=== PATIENT | male | born 1980 | race Caucasian/White ===

== ENCOUNTER 2018-03-06 13:10 | Emergency (ER) | payer BC ==
[2018-03-06] MEDS ORDERED: Diltiazem 25 MG/5 ML SDV IVPUSH ONE (13:48)
--- NOTE | 2018-03-06 13:54 | EDM.PDOC ---
ED HPI GENERAL MEDICAL PROBLEM - General Chief Complaint: Cardiovascular Problem Stated Complaint: DIZZINESS, RACING HEART Time Seen by Provider: 03/06/18 13:40 Source of Information: Reports: Patient, Family History Limitations: Reports: No Limitations - History of Present Illness INITIAL COMMENTS - FREE TEXT/NARRATIVE: 37-year-old female, usually healthy with only complaint of some slight joint stiffness over the past several weeks was on the boat today and developed an irregular heartbeat. He has no shortness of breath or chest pain. He had 6 beers last night but it wasn't a lot more than his usual. No fevers or chills. He felt lightheaded when he stood up so he thought he should have it checked. He has not had this in the past. Onset: Sudden Duration: Hour(s): (1 hour ago) Severity: Moderate Associated Symptoms: Reports: Other (Slight joint stiffness over the past several weeks, no redness or swelling) - Related Data Allergies Allergy/AdvReac Type Severity Reaction Status Date / Time bee venom protein (honey bee) Allergy Anaphylactic Verified 03/06/18 13:30 Shock Home Meds: Home Meds NK [No Known Home Meds] 03/06/18 [History] Past Medical History Musculoskeletal History: Reports: Fracture - Past Surgical History HEENT Surgical History: Reports: Tonsillectomy GI Surgical History: Reports: Appendectomy Social & Family History - Tobacco Use Smoking Status *Q: Never Smoker - Caffeine Use Caffeine Use: Reports: Coffee - Recreational Drug Use Recreational Drug Use: No ED ROS GENERAL - Review of Systems Review Of Systems: See Below Constitutional: Denies: Fever, Chills Respiratory: Reports: Shortness of Breath. Denies: Pleuritic Chest Pain Cardiovascular: Reports: Palpitations. Denies: Chest Pain GI/Abdominal: Reports: No Symptoms. Denies: Nausea, Vomiting Skin: Reports: No Symptoms Neurological: Denies: Headache, Numbness, Difficulty Walking Psychiatric: Reports: No Symptoms ED EXAM, GENERAL - Physical Exam Exam: See Below Exam Limited By: No Limitations General Appearance: Alert, No Apparent Distress Head: Atraumatic Respiratory/Chest: No Respiratory Distress, Lungs Clear Cardiovascular: Tachycardia, Irregularly Irregular GI/Abdominal: Soft, Non-Tender Extremities: Normal Inspection. No: Pedal Edema Neurological: Alert, Oriented Psychiatric: Normal Affect, Normal Mood Skin Exam: Warm, Dry EKG INTERPRETATION Rhythm: A-Fib Rate (Beats/Min): 126 QRS: Normal Course - Vital Signs Last Recorded V/S: Last Vital Signs Temp 96.7 F 03/06/18 13:30 Pulse 103 H 03/06/18 14:44 Resp 16 03/06/18 14:44 BP 134/89 03/06/18 14:44 Pulse Ox 98 03/06/18 14:44 - Orders/Labs/Meds Labs: Laboratory Tests 03/06/18 03/06/18 03/06/18 Range/Units 13:48 13:48 15:01 WBC 7.6 (4.5-11.0) K/uL RBC 5.39 (4.30-5.90) M/uL Hgb 16.4 H (12.0-15.0) g/dL Hct 46.1 (40.0-54.0) % MCV 86 (80-98) fL MCH 30 (27-31) pg MCHC 36 (32-36) % Plt Count 224 (150-400) K/uL Neut % (Auto) 61 (36-66) % Lymph % (Auto) 26 (24-44) % [place] % (Auto) 12 H (2-6) % Eos % (Auto) 1 L (2-4) % Baso % (Auto) 0 (0-1) % Sodium 142 (140-148) mmol/L Potassium 3.8 (3.6-5.2) mmol/L Chloride 106 (100-108) mmol/L Carbon Dioxide 26 (21-32) mmol/L Anion Gap 10.5 (5.0-14.0) mmol/L BUN 12 (7-18) mg/dL Creatinine 1.1 (0.8-1.3) mg/dL Est Cr Clr Drug Dosing 103.91 mL/min Estimated GFR (MDRD) > 60 (>60) Glucose 101 (74-106) mg/dL Calcium 8.4 L (8.5-10.1) mg/dL Troponin I < 0.017 (0.000-0.056) ng/mL Lyme Disease IgG/IgM <0.91 (0.00-0.90) ISR Meds: Medications Discontinued Medications Generic Name Dose Route Start Last Admin Trade Name Freq PRN Reason Stop Dose Admin Diltiazem HCl 20 mg 03/06/18 13:48 03/06/18 13:55 Diltiazem IVPUSH 03/06/18 13:49 20 mg ONETIME ONE Administration Sodium Chloride 1,000 mls @ 1,000 mls/hr 03/06/18 14:00 03/06/18 13:56 Normal Saline IV 1,000 mls/hr ASDIRECTED ASHWINI Administration Propofol 100 mg 03/06/18 14:28 03/06/18 15:05 Diprivan 20 Ml IVPUSH 03/06/18 14:29 100 mg ONETIME ONE Administration - Re-Assessments/Exams Free Text/Narrative Re-Assessment/Exam: 03/06/18 13:55 EKG showed atrial fibrillation with rapid ventricular response. An IV was started, patient was given 20 mg of IV Cardizem along with one bolus of normal saline. CBC, CMP, troponin were ordered. 03/06/18 15:13 Labs were reassuring, troponin 0. A half hour after 20 mg Cardizem bolus the patient had excellent rate control but still did not spontaneously convert. After consent was signed, the patient was given 160 mg of propofol and converted electively with synchronized cardioversion at 200 J. A postconversion EKG was done which confirmed normal sinus rhythm. Patient recovered nicely and had no post procedure symptoms or complaints. Lyme's and ehrlichiosis titers were drawn, and all records and both EKGs were sent with the patient for follow- up. Departure - Departure Time of Disposition: 15:32 Disposition: Home, Self-Care 01 Condition: Good Clinical Impression: Atrial fibrillation with rapid ventricular response Instructions: Atrial Fibrillation, [id number] Referrals: PCP,None [Primary Care Provider] - Forms: ED Department Discharge Care Plan Goals: Resume regular diet and activity, that may include [place]. Consider rechecking with cardiology or your primary care provider when home. Return if symptoms recur, stay hydrated and consider decreasing alcohol intake for the next several days.
[2018-03-06] MEDS ORDERED: Sodium Chloride 0.9% 1,000 ML IV SCH (14:00)
[2018-03-06] MEDS ORDERED: Propofol 200 MG/20 ML SDV IVPUSH ONE (14:28)
[2018-03-10 19:10] LABS: LYME IGG/IGM AB <0.91 ISR (0.00-0.90)
== END 2018-03-06 15:32 | disposition home or self-care (01) ==
LOC: JP.ED 13:10
DX: I48.91 Unspecified atrial fibrillation (principal); Z91.030 Bee allergy status; Z90.49 Acquired absence of other specified parts of digestive tract
CPT/HCPCS: 36415; 80048; 84484; 85025; 86618; 86666; 92960; 93005; 96361; 96374; 96375; 99284; J2704; J3490; J7030